=== PATIENT | female | born 1950 | race Native Hawaiian/Other Pacific Islander ===

== ENCOUNTER 2021-03-14 14:57 | Outpatient (CLI) | payer OTHER | END 2021-03-14 21:34 | disposition home or self-care (01) | LOC: CT 14:57 | PROVIDERS: ATTEND Nurse Practitioner Family | DX: R42 Dizziness and giddiness (principal); W19.XXXA Unspecified fall, initial encounter; R09.81 Nasal congestion; H65.93 Unspecified nonsuppurative otitis media, bilateral; R05 Cough ==

== ENCOUNTER 2021-06-08 13:02 | Outpatient (CLI) | payer OTHER | END 2021-06-08 22:35 | disposition home or self-care (01) | LOC: MRI 13:02 | PROVIDERS: ATTEND Specialist | DX: R27.0 Ataxia, unspecified (principal); R29.6 Repeated falls; R25.1 Tremor, unspecified | CPT/HCPCS: 36415; 82565; 84520; A9576 ==

== ENCOUNTER → 2022-09-03 | Outpatient (CLI) | payer OTHER | LOC: RAD 15:10 | PROVIDERS: ATTEND Nurse Practitioner Family | DX: R06.02 Shortness of breath (principal); R50.9 Fever, unspecified; J20.9 Acute bronchitis, unspecified; R06.2 Wheezing ==